=== PATIENT | male | born 1975 | race Caucasian/White ===

== ENCOUNTER → 2018-01-10 | Outpatient (CLI) | payer OTHER ==
--- NOTE | 2018-01-10 14:10 | XR ---
EXAMINATION TYPE: XR foot complete RT DATE OF EXAM: 01/10/2018 CLINICAL HISTORY: Plantar pain for several months. TECHNIQUE: Frontal, lateral, and oblique images of the right foot are obtained. COMPARISON: None FINDINGS: The Hitchcock's toe is present. Flexion in toes limits evaluation at this level. There is karen us positioning distal fourth and fifth toes. There is no acute fracture/dislocation evident in the ri ght foot. The joint spaces in the right foot appear within normal limits. There is moderate size inf erior calcaneal spur. The overlying soft tissue appears unremarkable. IMPRESSION: Moderate size inferior calcaneal spur.
== END | disposition home or self-care (01) ==
LOC: RADXRYALE 13:38
PROVIDERS: ATTEND Physician Assistant Medical
DX: M77.31 Calcaneal spur, right foot (principal); M72.2 Plantar fascial fibromatosis